=== PATIENT | male | born 1990 | race Caucasian/White ===

== ENCOUNTER 2020-01-22 10:57 | Outpatient (CLI) | payer SELFPAY ==
--- NOTE | ~2020-01-22 | XR_ITS ---
XR foot RT 2V 01/22/2020 11:24 INDICATION: Cellulitis. Foot pain. Source dorsal aspect of the foot. PROCEDURE: 4 views right foot COMPARISON: No prior studies for comparison. FINDINGS: Fracture, dislocation or subluxation is not identified. The soft tissues appear within norm al limits. No foreign bodies are identified. IMPRESSION: 1: NO ACUTE BONE OR JOINT ABNORMALITY IDENTIFIED. Reviewed, dictated and finalized at location A.
[2020-01-22 11:11] LABS: Basophils Absolute Auto 0.08 K/mm3 (0.00-0.10); Basophils Percent Auto 1.3 % (0.0-1.0); Eosinophils Absolute Auto 0.28 K/mm3 (0.02-0.50); Eosinophils Percent Auto 4.5 % (1.0-6.0); Hemoglobin 14.4 g/dL (14.0-18.0); Immature Granulocyte Absolute 0.01 K/mm3 (0.00-0.00); Immature Granulocyte Percent A 0.2 % (0.0-0.0); Lymphocytes Absolute Auto 2.01 K/mm3 (1.10-4.50); Lymphocytes Percent Auto 32.2 % (18.0-42.0); Mean Corpuscular HGB Conc 32.7 g/dL (32.0-36.0); Mean Corpuscular Hemoglobin 30.1 pg (27.0-31.0); Mean Corpuscular Volume 92.1 fL (78.0-102.0); Mean Platelet Volume 9.6 fl (8.7-11.0); Monocytes Absolute Auto 0.48 K/mm3 (0.10-0.90); Monocytes Percent Auto 7.7 % (2.0-11.0); Neutrophils Absolute Auto 3.4 K/mm3 (1.7-7.2); Neutrophils Percent Auto 54.1 % (50.0-70.0); Platelet Count Result 256 K/mm3 (150-420); Red Blood Count 4.78 M/mm3 (4.70-6.10); Red Cell Distribution Width 13.7 % (11.6-14.4); White Blood Count 6.3 K/mm3 (4.8-10.8)
[2020-01-22 12:21] LABS: Alanine Aminotransferase 24 U/L (16-63); Albumin Level 3.4 g/dL (3.4-5.0); Alkaline Phosphatase 59 U/L (46-116); Anion Gap 12.4 mmol/L (7-16); Aspartate Amino Transferase 18 U/L (15-37); Bilirubin,Total 0.4 mg/dL (0.00-1.00); Blood Urea Nitrogen 6 mg/dL (7-18); Calcium 8.5 mg/dL (8.5-10.1); Carbon Dioxide 30 mmol/L (21-32); Chloride 107 mmol/L (98-108); Estimated Glomerular Filt Rate > 60; Glucose 78 mg/dL (70-99); Osmolality Calculated 296 mOsm/kg (285-295); Potassium 4.4 mmol/L (3.5-5.1); Sodium 145 mmol/L (136-145); Total Protein 6.1 g/dL (6.4-8.2)
== END 2020-01-22 10:58 | disposition home or self-care (01) ==
PROVIDERS: PCP Nurse Practitioner Family; Visit Provider Nurse Practitioner Family
DX: L97.519 Non-pressure chronic ulcer of other part of right foot with unspecified severity (principal); L03.119 Cellulitis of unspecified part of limb; L02.619 Cutaneous abscess of unspecified foot
CPT/HCPCS: 36415; 73620; 80053; 85025; 87070; 87077; 87186; 87205

== ENCOUNTER 2020-01-28 13:30 | Outpatient (RCR) | payer OTHER, SELFPAY ==
[2020-01-28 13:30] VITALS: BMI 23.8
--- NOTE | 2020-02-07 09:43 | PCWOUND ---
WOCN NOTE Patient did not show up for appointment. called, pt states he is fine and does not feel like he needs to be assessed anymore he is fine, wound is almost closed. notifies PCP.
--- NOTE | 2020-02-28 09:27 | PCWOUND ---
WOCN NOTE Patient did not show up for appointment.
== END 2020-04-14 07:44 | disposition home or self-care (01) ==
LOC: ANHWOC 13:30
PROVIDERS: PCP Nurse Practitioner Family; Visit Provider Nurse Practitioner Family
DX: L97.519 Non-pressure chronic ulcer of other part of right foot with unspecified severity (principal)
CPT/HCPCS: 99213; A9270; G0463

== ENCOUNTER 2020-05-26 15:04 | Outpatient (CLI) | payer BC, MEDICAID, SELFPAY ==
[2020-05-27 14:22] LABS: SARS-CoV-2 RNA PCR Negative
== END 2020-05-26 15:05 | disposition home or self-care (01) ==
LOC: CHSLAB 15:06
PROVIDERS: PCP Nurse Practitioner Family; Visit Provider Nurse Practitioner Family
DX: R52 Pain, unspecified (principal); Z20.828 Contact with and (suspected) exposure to other viral communicable diseases
CPT/HCPCS: 87635; C9803; U0003

== ENCOUNTER 2020-06-28 12:46 | Emergency (ER) | payer BC, MEDICAID, SELFPAY ==
--- NOTE | ~2020-06-28 | XR_ITS ---
EXAMINATION: XR chest 1V portable EXAM DATE: 06/28/2020 13:07 INDICATION: Possible breath, history of asthma and hypertension. TECHNIQUE: Portable AP frontal chest x-ray was obtained. Comparison is made to prior examination from 06/28/2015. FINDINGS: There is moderate hyperinflation. The lungs are clear. There are no pleural effusions. Th e cardiomediastinal silhouette is within normal limits. There is no pneumothorax suspected. The bon es and soft tissues are unremarkable. IMPRESSION: Moderate hyperinflation. Reviewed, dictated and finalized at location A. IMPRESSION: Moderate hyperinflation.
[2020-06-28 12:49] VITALS: BP 141/108; PULSE 84; RESP 21; TEMP 36.8; O2SAT 99
--- NOTE | 2020-06-28 12:51 | ECG_ITS ---
Measurements Intervals [place] Rate: 69 P: 77 NM: 149 QRS: 73 QRSD: 75 T: 70 QT: 341 QTc: 366 Interpretive Statements SINUS RHYTHM NORMAL ECG Electronically Signed On 06-28-2020 15:09:48 CDT by Harry Walsh D.O.
[2020-06-28 13:30] LABS: Basophils Absolute Auto 0.1 K/mm3 (0.0-0.1); Basophils Percent Auto 1.5 % (0.2-1.2); Eosinophils Absolute Auto 0.3 K/mm3 (0-0.3); Eosinophils Percent Auto 3.6 % (0-4.4); Hemoglobin 16.2 g/dL (14.0-18.0); Immature Granulocyte Absolute 0.02 K/mm3 (0.00-0.031); Immature Granulocyte Percent A 0.2 % (0-0.5); Lymphocytes Percent Auto 36.2 % (18.3-44.2); Mean Corpuscular HGB Conc 33.8 g/dl (32-36); Mean Corpuscular Hemoglobin 30.7 pg (26-34); Mean Corpuscular Volume 91.1 fl (80-100); Mean Platelet Volume 10.2 fl (7.4-10.4); Monocytes Absolute Auto 0.6 K/mm3 (0.1-0.6); Monocytes Percent Auto 6.7 % (2.6-8.5); Neutrophils Absolute Auto 4.6 K/mm3 (1.3-6.7); Neutrophils Percent Auto 51.8 % (45.5-73.1); Platelet Count Result 251 k/mm3 (150-375); Red Blood Count 5.27 M/mm3 (4.6-6.20); Red Cell Distribution Width 13.4 % (11.5-14.5); White Blood Count 8.9 K/mm3 (4.5-10.0)
[2020-06-28 13:43] LABS: Anion Gap 8 mmol/L (8-16); Blood Urea Nitrogen 7 mg/dL (9-20); Calcium 9.4 mg/dL (8.4-10.2); Carbon Dioxide 31 mmol/L (22-30); Chloride 103 mmol/L (98-107); Estimated CRCL calculation 112 ml/min; Estimated Glomerular Filt Rate > 60; Glucose 88 mg/dL (75-110); Sodium 142 mmol/L (137-145)
[2020-06-28 13:50] VITALS: PULSE 63
[2020-06-28 14:29] VITALS: BP 136/90; PULSE 63; RESP 18; O2SAT 98
--- NOTE | 2020-06-28 14:45 | ED.SOB ---
HPI - SOB/Dyspnea General Chief Complaint: Shortness of Breath/Dyspnea Stated Complaint: diff breathing Time Seen by Provider: 06/28/20 12:53 Source: patient Mode of arrival: ambulatory Limitations: no limitations History of Present Illness HPI Narrative: Patient is a 29-year-old male who presents to emergency department for evaluation of 8 shortness of breath and wheezing with history of asthma and tobacco abuse noting that he is out of his inhaler patient notes wheezing and chest tightness denies URI symptoms or other complaints and presents in no distress patient on arrival to emergency department resting comfortably in the room in no distress Related Data Allergies Allergy/AdvReac Type Severity Reaction Status Date / Time No Known Allergies Allergy Verified 06/28/20 12:52 Review of Systems Review of Systems: All systems reviewed & are unremarkable except as noted in HPI and below PMFSH Past Medical History Medical History Asthma Depression Hypertension Nicotine dependence, cigarettes, uncomplicated Overweight (BMI 25.0-29.9) Surgical History Surgical History No history of previous surgery Social History Social History Smoking packs per day: 1 Smoking cigarettes per day: 20.0 Years smoked: 20 Smoking pack-years: 20.00 Smoking status: Current every day smoker Tobacco type: cigarettes 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 Gender identity (if verbalized by the patient): Male Exam Narrative: Exam Narrative: GENERAL: Well-appearing, well-nourished, and in no acute distress. HEAD: Normocephalic, atraumatic. EYES: PERRLA and EOMI. ENT: Nares clear, no rhinorrhea or epistaxis. Mucous membranes moist. Oropharynx without tonsillar hypertrophy exudate or other lesions. NECK: Supple. No adenopathy or masses. CHEST: Diminished on auscultation. No respiratory distress. Expiratory wheezes HEART: Regular rate and rhythm. No murmur heard. Normal peripheral pulses. ABDOMEN: Soft, nontender, nondistended EXTREMITIES: Normal range of motion. No edema. SKIN: Warm, dry, no rash. NEURO: No focal deficits. Alert and oriented x3. Cranial nerves II through XII grossly intact PSYCH: Normal mood and affect. Course Course Emergency Course: Patient in the room at this time in no distress aware of case findings treatment plan diagnosis felt appropriate for outpatient reevaluation given an MDI spacer as well as a dose of steroids in the emergency department Vital Signs Vital signs: Vital Signs Temperature 98.2 F 06/28/20 12:49 Pulse Rate 84 06/28/20 12:49 Respiratory Rate 21 H 06/28/20 12:49 Blood Pressure 141/108 H 06/28/20 12:49 Pulse Oximetry 99 06/28/20 12:49 Temperature 98.2 F 06/28/20 12:49 Pulse Rate 63 06/28/20 14:29 Respiratory Rate 18 06/28/20 14:29 Blood Pressure 136/90 06/28/20 14:29 Pulse Oximetry 98 06/28/20 14:29 MDM - SOB/Dyspnea MDM Narrative Medical decision making narrative: Patient with asthma exacerbation advised to discontinue smoking referred to primary care for further evaluation felt appropriate for his changes in his evaluation in the emergency department Lab Data Result diagrams: 06/28/20 13:02 06/28/20 13:02 Labs: Lab Results 06/28/20 06/28/20 Range/Units 13:02 13:02 WBC 8.9 (4.5-10.0) K/mm3 RBC 5.27 (4.6-6.20) M/mm3 Hgb 16.2 (14.0-18.0) g/dL Hct 48.0 (42.0-52.0) % MCV 91.1 (80-100) fl MCH 30.7 (26-34) pg MCHC 33.8 (32-36) g/dl RDW 13.4 (11.5-14.5) % Plt Count 251 (150-375) k/mm3 MPV 10.2 (7.4-10.4) fl Immature Gran % (Auto) 0.2 (0-0.5) % Neut % (Auto) 51.8 (45.5-73.1) % Lymph % (Auto) 36.2 (18.3-44.2) % Wright % (Auto) 6.7 (2.6-8.5) % Eos % (
[2020-06-28 15:10] VITALS: BP 141/94; PULSE 62; RESP 16; O2SAT 98
[2020-06-28] MEDS: methylPREDNISolone SOD SUCC 125 MG VIAL IV PUSH (15:10)
== END 2020-06-28 15:11 | disposition home or self-care (01) ==
PROVIDERS: Emergency Provider Emergency Medicine; PCP Nurse Practitioner Family
DX: J45.901 Unspecified asthma with (acute) exacerbation (principal); I10 Essential (primary) hypertension; E66.3 Overweight; Z68.23 Body mass index [BMI] 23.0-23.9, adult; F17.210 Nicotine dependence, cigarettes, uncomplicated
CPT/HCPCS: 36415; 71045; 80048; 85025; 93005; 96374; 99284; J2930

== ENCOUNTER 2020-10-10 10:55 | Outpatient (CLI) | payer BC, MEDICAID, SELFPAY ==
[2020-10-11 18:46] LABS: SARS-CoV-2 RNA PCR Negative
== END 2020-10-10 10:56 | disposition home or self-care (01) ==
LOC: CHSLAB 11:03
PROVIDERS: PCP Nurse Practitioner Family; Visit Provider Nurse Practitioner Family
DX: Z20.822 Contact with and (suspected) exposure to COVID-19 (principal)
CPT/HCPCS: C9803; U0003; U0005

== ENCOUNTER 2020-11-30 23:15 | Emergency (ER) | payer BC, MEDICAID, SELFPAY ==
[2020-11-30 23:15] VITALS: BP 155/92; PULSE 87; RESP 20; TEMP 36.9; O2SAT 98
--- NOTE | 2020-11-30 23:42 | ED.DENTAL ---
HPI - Dental/Oral General Chief complaint: Dental/Oral Stated complaint: PAIN Time Seen by Provider: 11/30/20 23:35 Source: patient Mode of arrival: ambulatory Limitations: no limitations History of Present Illness HPI Narrative: Patient comes in with dental pain what appears to be tooth #30 with an abscess on the lateral side of the tooth. He says this has been hurting for a few days, but it has gotten to hurting more and that brings him in to be evaluated now. Onset (ago): day(s) Duration: intermittent Severity: moderate Severity scale (1-10): 5 Relieving factors: NSAIDs Exacerbating factors: chewing, cold and heat Context: history of dental caries and poor dental care Associated symptoms: gum swelling Treatment prior to arrival: oral analgesic Related Data Allergies Allergy/AdvReac Type Severity Reaction Status Date / Time No Known Allergies Allergy Verified 11/25/20 14:33 Review of Systems Constitutional: Constitutional: Reports no additional constitutional complaints Eyes: Eyes: Reports no additional eye complaints ENT: Reports system reviewed and no additional complaints, except as documented Cardiovascular: Cardiovascular: Reports no additional cardiovascular complaints Respiratory: Respiratory: Reports no additional respiratory complaints Gastrointestinal: Gastrointestinal: Reports no additional gastrointestinal complaints Genitourinary: Genitourinary: Reports no additional male genitourinary complaints Musculoskeletal: Musculoskeletal: Reports no additional musculoskeletal complaints Integumentary/Breasts: Skin/Breast: Reports system reviewed and no additional complaints, except as docu Neurologic: Reports system reviewed and no additional complaints, except as documented Psychiatric: Psychiatric: Reports no additional psychiatric complaints Endocrine: Endocrine: Reports no additional endocrine complaints Hematologic/Lymphatic: Hematologic/Lymphatic: Reports no additional hematologic/lymphatic complaints Allergic/Immunologic: Allergic/Immunologic: Reports no additional allergic/immunologic complaints [facility] Past Medical History Medical History Asthma Depression Hypertension Nicotine dependence, cigarettes, uncomplicated Overweight (BMI 25.0-29.9) Surgical History Surgical History No history of previous surgery Family History Family History Father No problems noted. 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 Gender identity (if verbalized by the patient): Male Exam Const: General: healthy appearing and no acute distress Orientation/consciousness: patient oriented x3 HENMT: Head: normal to inspection Ears: external ears normal and TM's normal bilaterally General nose exam: Normal external nose present Mouth: Yes Normal oral and palatal mucosa present and Yes moist mucous membranes Throat: posterior oropharynx normal Other: Left lower jaw with mild lateral swelling. He appears to have an abscessed tooth #30, with a abscess lateral to the tooth. Eyes: Conjunctivae: conjunctivae normal Neck: Neck: normal visual inspection and no lymphadenopathy Chest: Chest palpation & inspection: normal inspection of the chest Resp: Effort & Inspection: normal respiratory effort Auscultation: clear to auscultation bilaterally Cardio: Rate: regular rate Rhythm: regular rhythm GI: GI Palp: Yes Soft to palpation (nontender) Skin: General skin exam: normal color Neuro: General: patient oriented x3 and moves all extremities Ext
[2020-11-30] MEDS: PENICILLIN G BENZATHINE 1,200,000 UNITS/2 ML SYRINGE 1200000 UNITS IM (23:58)
--- NOTE | 2020-11-30 23:59 | PC.NURSE ---
PT DOES NOT WANT TO WAIT FOR 15 MIN OBSERVATION AFTER INJECTION. PT IS ALERT AND ORIENTED AT THIS TIME.
== END 2020-12-01 00:01 | disposition home or self-care (01) ==
PROVIDERS: Emergency Provider Emergency Medicine; PCP Nurse Practitioner Family
DX: K04.7 Periapical abscess without sinus (principal)
CPT/HCPCS: 96372; 99283; J0561

== ENCOUNTER 2021-04-15 22:18 | Emergency (ER) | payer BC, MEDICAID, SELFPAY ==
[2021-04-15 22:20] VITALS: BP 156/80; PULSE 84; RESP 18; TEMP 37.1; O2SAT 98
--- NOTE | 2021-04-15 23:18 | ED.GENADULT ---
HPI - General Adult General Chief complaint: Unspecified Stated complaint: st Time Seen by Provider: 04/15/21 22:31 Source: patient Mode of arrival: ambulatory Limitations: no limitations History of Present Illness HPI narrative: This is a 30-year-old male that presents the emergency department for sore throat x2 days. Associated with rhinorrhea and a mild cough. Denies fever. Related Data Allergies Allergy/AdvReac Type Severity Reaction Status Date / Time No Known Allergies Allergy Verified 04/15/21 22:24 Review of Systems Review of Systems: Narrative: CONSTITUTIONAL: Denies fever ENT: Reports rhinorrhea, congestion, sore throat. Denies otalgia. RESPIRATORY: Reports cough All systems reviewed & are unremarkable except as noted in HPI and below PMFSH Past Medical History Medical History (Updated 04/15/21 @ 23:23 by Tayler Masterson PA-C) Asthma Depression Hypertension Nicotine dependence, cigarettes, uncomplicated Overweight (BMI 25.0-29.9) Surgical History Surgical History No history of previous surgery Family History Family History Father No problems noted. Social History Social History Smoking packs per day: 1 Smoking cigarettes per day: 20.0 Years smoked: 20 Smoking pack-years: 20.00 Smoking status: Current every day smoker Tobacco type: cigarettes Additional occupation/education comments: [employer]. Gender identity (if verbalized by the patient): Male Exam Narrative: Exam Narrative: GENERAL: Well-appearing, well-nourished, and in no acute distress. HEAD: Normocephalic, atraumatic. EYES: EOMI. ENT: Nares clear, no rhinorrhea or epistaxis. Mucous membranes moist. Oropharynx with mild tonsillar hypertrophy and exudate, no other lesions. No trismus. Uvula is midline. Bilateral TMs pearly palomino non-bulging NECK: Supple. No adenopathy or masses. CHEST: Clear to auscultation. No respiratory distress. No wheezes rales or rhonchi HEART: Regular rate and rhythm. No murmur heard. Normal peripheral pulses. EXTREMITIES: Normal range of motion. No edema. SKIN: Warm, dry, no rash. NEURO: No focal deficits. Alert and oriented x3. PSYCH: Normal mood and affect Course Vital Signs Vital signs: Vital Signs Temperature 98.7 F 04/15/21 22:20 Pulse Rate 84 04/15/21 22:20 Respiratory Rate 18 04/15/21 22:20 Blood Pressure 156/80 H 04/15/21 22:20 Pulse Oximetry 98 04/15/21 22:20 Temperature 98.7 F 04/15/21 22:20 Pulse Rate 84 04/15/21 22:20 Respiratory Rate 18 04/15/21 22:20 Blood Pressure 156/80 H 04/15/21 22:20 Pulse Oximetry 98 04/15/21 22:20 Medical Decision Making MDM Narrative Medical decision making narrative: Patient presents the emergency department for sore throat, rhinorrhea, and cough. He is afebrile and nontoxic-appearing. Rapid strep screen is negative. His tonsils are swollen and have mild exudates. Uvula is midline. No trismus. Spoke with patient about this likely being viral in nature. I did tell patient I would send an antibiotic to the pharmacy for any worsening symptoms. Patient's rapid strep will be sent for culture. He is to follow-up with his primary care doctor. He was given warnings to return to the ER Vital Signs Vital Signs: Vital Signs Temperature 98.7 F 04/15/21 22:20 Pulse Rate 84 04/15/21 22:20 Respiratory Rate 18 04/15/21 22:20 Blood Pressure 156/80 H 04/15/21 22:20 Pulse Oximetry 98 04/15/21 22:20 Temperature 98.7 F 04/15/21 22:20 Pulse Rate 84 04/15/21 22:20 Respiratory Rate 18 04/15/21 22:20 Blood Pressure 156/80 H 04/15/21 22:20 Pulse Oximetry 98 04/15/21 22:20 Lab Data Lab results reviewed: Yes I reviewed the patient's lab results. Labs: Strep Screen
[2021-04-16 00:01] VITALS: BP 148/96; PULSE 71; RESP 14; O2SAT 99
== END 2021-04-15 23:30 | disposition home or self-care (01) ==
PROVIDERS: Emergency Provider Emergency Medicine; PCP Nurse Practitioner Family
DX: J02.9 Acute pharyngitis, unspecified (principal); F17.210 Nicotine dependence, cigarettes, uncomplicated; J45.909 Unspecified asthma, uncomplicated; F32.9 Major depressive disorder, single episode, unspecified; I10 Essential (primary) hypertension
CPT/HCPCS: 87081; 87880; 99283

== ENCOUNTER 2021-07-10 14:10 | Emergency (ER) | payer BC, MEDICAID, SELFPAY ==
--- NOTE | ~2021-07-10 | XR_ITS ---
EXAMINATION: XR chest 2V EXAM DATE: 07/10/2021 16:42 INDICATION: Dyspnea, chest tightness x1 day TECHNIQUE: Frontal and lateral projections of the chest obtained and reviewed. Comparison is made to prior examination from 06/28/2020. FINDINGS: Lungs are moderate to severely hyperinflated. The lungs are clear. There are no pleural e ffusions. The cardiomediastinal silhouette is within normal limits. There is no pneumothorax suspec jassi. The bones and soft tissues are unremarkable. IMPRESSION: Moderate to severe hyperinflation. Reviewed, dictated and finalized at location B.
--- NOTE | 2021-07-10 14:20 | PC.NURSE ---
Pt sent from office for SOB. Hx of asthma. Pt o2 saturation 97% on room air. Pt able to speak in full sentences. No obvious distress noted. Will continue to monitor.
[2021-07-10 14:52] VITALS: BP 119/96; PULSE 90; RESP 18; TEMP 36.5; O2SAT 98
--- NOTE | 2021-07-10 14:56 | ECG_ITS ---
Measurements Intervals [place] Rate: 80 P: 93 CO: 145 QRS: 90 QRSD: 81 T: 89 QT: 338 QTc: 390 Interpretive Statements SINUS RHYTHM DELAYED PRECORDIAL R/S TRANSITION MINIMAL Q WAVES- INFERIOR LEADS BORDERLINE T WAVE ABNORMALITY- HIGH LATERAL LEADS BORDERLINE ECG Electronically Signed On 07-10-2021 15:26:16 CDT by Harry Walsh D.O.
--- NOTE | 2021-07-10 14:58 | ED.SOB ---
HPI - SOB/Dyspnea General Chief Complaint: Shortness of Breath/Dyspnea Stated Complaint: SOB Time Seen by Provider: 07/10/21 14:58 Source: patient Mode of arrival: ambulatory Limitations: no limitations History of Present Illness HPI Narrative: 30-year-old man with a history of asthma comes to the ER today complaining of shortness of breath and chest tightness that has been present for last couple of days. Patient states that his symptoms are not improved by his nebulizers or inhalers. His cough is occasionally productive of small amounts of yellow sputum and he has nausea.. He denies sore throat, rhinorrhea, fever, chills, body aches, abdominal pain, vomiting, diarrhea, or sick exposures. He has not had the COVID or flu vaccines. MD elicited complaint: shortness of breath and cough Pertinent past history: asthma Onset (ago): day(s) (2) Timing: constant and progressively worsening Severity: moderate Exacerbating factors: exertion Relieving factors: nothing Associated symptoms: chest pain ( Tightness), fever, cough, wheezing and sputum production Related Data Home oxygen amount: none Allergies Allergy/AdvReac Type Severity Reaction Status Date / Time No Known Allergies Allergy Verified 07/10/21 15:45 Review of Systems Review of Systems: All systems reviewed & are unremarkable except as noted in HPI and below Constitutional: Constitutional: Denies chills and Denies fever(s) ENT: Denies nasal congestion and Denies sore throat Cardiovascular: Cardiovascular: Reports as per HPI, Denies chest pain and Denies radiating jaw, neck or arm pain Respiratory: Respiratory: Reports chest congestion, Reports cough, Reports dyspnea and Reports wheezing Gastrointestinal: Gastrointestinal: Denies abdominal pain, Denies diarrhea, Reports nausea and Denies vomiting Musculoskeletal: Musculoskeletal: Denies back pain, Denies arthralgias and Denies joint swelling Integumentary/Breasts: Skin/Breast: Denies pruritus, Denies erythema and Denies rash Neurologic: Denies vertigo, Denies dizziness, Denies syncope, Denies focal weakness and Denies numbness Hematologic/Lymphatic: Hematologic/Lymphatic: Denies easy bleeding and Denies easy bruising Allergic/Immunologic: Allergic/Immunologic: Denies lip swelling and Denies throat swelling PMFSH Past Medical History Medical History (Updated 07/10/21 @ 17:16 by Portillo Cruz MD) Asthma Depression Hypertension Nicotine dependence, cigarettes, uncomplicated Overweight (BMI 25.0-29.9) Surgical History Surgical History No history of previous surgery Family History Family History Father No problems noted. Social History Social History Smoking packs per day: 1 Smoking cigarettes per day: 20.0 Years smoked: 20 Smoking pack-years: 20.00 Smoking status: Current every day smoker Tobacco type: cigarettes Additional occupation/education comments: [employer]. [employer]. Gender identity (if verbalized by the patient): Male Exam Const: General: healthy appearing and alert Orientation/consciousness: patient oriented x3 Limitations: no limitations Other: Mild acute distress. HENMT: Head: normal to inspection Ears: external ears normal, TM's normal bilaterally and EAC's normal General nose exam: Normal nares present Face and sinus: normal facial exam Mouth: Yes moist mucous membranes Throat: posterior oropharynx normal Eyes: Conjunctivae: conjunctivae normal Pupils: Equal, round and reactive pupils present EOM: EOMs intact bilaterally Resp: Effort & Inspection: normal respiratory effort, labored ( Mildly), no retractions, tachypneic and no use of accessory muscles Auscultation: wheezes expiratory wheezes ( late with mildly decreased air movement) and throughout Cardi
--- NOTE | 2021-07-10 15:16 | PC.NURSE ---
Covid and Influenza swabs obtained and sent to lab
--- NOTE | 2021-07-10 15:42 | PCRCNOTE ---
Patient asked if he could self-administer his own Albuterol MDI he had in his pocket. Approved by Dr. Cruz. Albuterol MDI returned in [facility]
[2021-07-10 15:55] VITALS: BP 140/97; PULSE 92; RESP 18; O2SAT 99
[2021-07-10 16:07] LABS: SARS-CoV-2 RNA PCR Negative (Negative)
[2021-07-10 16:08] LABS: Influenza A QL RT-PCR Negative (Negative); Influenza B QL RT-PCR Negative (Negative)
[2021-07-10 16:31] LABS: Eosinophils Absolute Auto 0.26 K/mm3 (0.02-0.50); Eosinophils Percent Auto 2.7 % (1.0-6.0); Hematocrit 47.7 % (40.0-54.0); Hemoglobin 16.3 g/dL (14.0-18.0); Immature Granulocyte Absolute 0.03 K/mm3 (0.00-0.00); Immature Granulocyte Percent A 0.3 % (0.0-0.0); Lymphocytes Absolute Auto 1.94 K/mm3 (1.10-4.50); Lymphocytes Percent Auto 19.8 % (18.0-42.0); Mean Corpuscular HGB Conc 34.2 g/dL (32.0-36.0); Mean Corpuscular Hemoglobin 30.4 pg (27.0-31.0); Mean Corpuscular Volume 88.8 fL (78.0-102.0); Mean Platelet Volume 9.3 fl (8.7-11.0); Monocytes Absolute Auto 0.43 K/mm3 (0.10-0.90); Monocytes Percent Auto 4.4 % (2.0-11.0); Neutrophils Absolute Auto 7.1 K/mm3 (1.7-7.2); Neutrophils Percent Auto 71.8 % (50.0-70.0); Platelet Count Result 269 K/mm3 (150-420); Red Blood Count 5.37 M/mm3 (4.70-6.10); Red Cell Distribution Width 13.3 % (11.6-14.4); White Blood Count 9.8 K/mm3 (4.8-10.8)
[2021-07-10 16:45] LABS: D Dimer 0.19 mg/L (0.19-0.50)
[2021-07-10 16:47] LABS: Alanine Aminotransferase 31 U/L (16-63); Albumin Level 4.4 g/dL (3.4-5.0); Alkaline Phosphatase 74 U/L (46-116); Anion Gap 11 mmol/L (8-16); Aspartate Amino Transferase 19 U/L (15-37); Bilirubin,Total 2.2 mg/dL (0.00-1.00); Blood Urea Nitrogen 9 mg/dL (7-18); Calcium 9.3 mg/dL (8.5-10.1); Carbon Dioxide 26 mmol/L (21-32); Chloride 103 mmol/L (98-108); Estimated CRCL calculation 91 ml/min; Estimated Glomerular Filt Rate > 60; Glucose 89 mg/dL (70-99); Osmolality Calculated 287 mOsm/kg (285-295); Potassium 3.7 mmol/L (3.5-5.1); Sodium 140 mmol/L (136-145); Total Protein 7.6 g/dL (6.4-8.2)
[2021-07-10 17:33] VITALS: BP 133/103; PULSE 80; RESP 16; O2SAT 97
== END 2021-07-10 17:31 | disposition home or self-care (01) ==
PROVIDERS: Emergency Provider Emergency Medicine; PCP Nurse Practitioner Family
DX: J45.41 Moderate persistent asthma with (acute) exacerbation (principal); Z20.822 Contact with and (suspected) exposure to COVID-19
CPT/HCPCS: 36415; 71046; 80053; 85025; 85380; 87502; 93005; 99283; 99284; A9270; C9803; U0003; U0005

== ENCOUNTER 2021-09-22 14:15 | Outpatient (CLI) | payer BC, MEDICAID, SELFPAY ==
[2021-09-22 15:10] LABS: SARS-CoV-2 RNA PCR Negative (Negative)
== END 2021-09-22 14:16 | disposition home or self-care (01) ==
LOC: CHSLAB 14:21
PROVIDERS: PCP Nurse Practitioner Family; Visit Provider Nurse Practitioner Family
DX: Z20.822 Contact with and (suspected) exposure to COVID-19 (principal)
CPT/HCPCS: C9803; U0003; U0005

== ENCOUNTER 2021-09-24 12:23 | Outpatient (CLI) | payer BC, MEDICAID, SELFPAY ==
--- NOTE | ~2021-09-24 | CT_ITS ---
EXAMINATION: CT brain wo con DATE: 09/24/2021 12:48 INDICATION: Confusion. Generalized headache. TECHNIQUE: Computed tomography (CT) of the head was performed without intravenous contrast. Sagittal and coronal reconstructions were performed. The mA was adjusted according to patient size. Iterative reconstruction technique was employed. The dose-length product was 605.33 mGy-cm. COMPARISON: head CT dated 06/28/2015 FINDINGS: No acute intracranial hemorrhage, acute infarction or abnormal extra axial fluid collection. Ventricl es are normal and symmetric. No mass/mass effect. The orbits, paranasal sinuses and mastoid air cells are normal. IMPRESSION: 1. Normal brain. No acute intracranial process. Reviewed, dictated and finalized at location A. 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
== END 2021-09-24 12:24 | disposition home or self-care (01) ==
LOC: CHSIMG 12:26
PROVIDERS: PCP Nurse Practitioner Family; Visit Provider Nurse Practitioner Family
DX: R56.9 Unspecified convulsions (principal); F41.0 Panic disorder [episodic paroxysmal anxiety]; R51.9 Headache, unspecified; G89.29 Other chronic pain; R40.20 Unspecified coma
CPT/HCPCS: 70450

== ENCOUNTER 2021-12-03 18:26 | Emergency (ER) | payer BC, MEDICAID, SELFPAY ==
[2021-12-03 19:20] VITALS: BP 133/99; PULSE 107; RESP 22; TEMP 36.2; O2SAT 97
[2021-12-03 19:25] VITALS: O2SAT 97
--- NOTE | 2021-12-03 19:25 | ED.SOB ---
HPI - SOB/Dyspnea General Chief Complaint: Shortness of Breath/Dyspnea Stated Complaint: trouble breathing Source: patient Mode of arrival: ambulatory Limitations: no limitations History of Present Illness HPI Narrative: This is a 31-year-old gentleman that presents with some mild shortness of breath with some scattered wheezes apparently has run out of his inhalers and presented to the emergency department currently patient is afebrile blood pressure stable has no cough no nausea vomiting no chest pain no abdominal pain. MD elicited complaint: shortness of breath Pertinent past history: asthma Onset (ago): hour(s) Timing: intermittent Severity: mild Related Data Allergies Allergy/AdvReac Type Severity Reaction Status Date / Time No Known Allergies Allergy Verified 12/03/21 19:27 Review of Systems Review of Systems: All systems reviewed & are unremarkable except as noted in HPI and below PMFSH Past Medical History Medical History (Updated 12/03/21 @ 19:27 by Kam Maldonado MD) Asthma Depression Hypertension Nicotine dependence, cigarettes, uncomplicated Overweight (BMI 25.0-29.9) Surgical History Surgical History No history of previous surgery Family History Family History Father No problems noted. 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 Gender identity (if verbalized by the patient): Male Exam Const: General: no acute distress and alert Orientation/consciousness: patient oriented x3 HENMT: Head: normal to inspection Eyes: Conjunctivae: conjunctivae normal Pupils: Equal, round and reactive pupils present Neck: Neck: normal visual inspection Chest: Chest palpation & inspection: normal inspection of the chest Resp: Effort & Inspection: normal respiratory effort Auscultation: wheezes Cardio: Rate: regular rate Rhythm: regular rhythm GI: GI Palp: Yes Soft to palpation : Testes: Testes normal Urinary Catheter: Urinary Catheter: patent and draining Back/Spine/Pelvis: Back: no CVA tenderness Skin: General skin exam: normal color Rashes: no rashes Neuro: General: patient oriented x3 and moves all extremities Extrem: General: normal to inspection and no pedal edema Psych: Mental Status: mental status grossly normal Affect: normal affect Attitude: cooperative Course Course Emergency Course: Patient's saturations 97% on room air, patient received DuoNeb treatment and stable will be discharged will send inhalers to his pharmacy. Critical Care Time Critical Care Time Critical Care Time: No Discharge Plan Discharge Clinical Impression: Asthma Qualifiers: Asthma severity: mild Asthma persistence: unspecified Asthma complication type: uncomplicated Qualified Code(s): J45.909 - Unspecified asthma, uncomplicated Patient Disposition: Home, Self-Care Condition: Stable Instructions: Antibiotic Form, Asthma (ED) Additional Instructions: Use inhalers as prescribed follow-up with primary care physician for further evaluation and treatment. Prescriptions: New albuterol sulfate [ProAir HFA] 90 mcg/actuation HFA aerosol inhaler 2 puff inhalation QID PRN (Reason: shortness of breath or wheezing) Qty: 6.7 RF: 0 No Action ipratropium-albuterol 0.5 mg-3 mg(2.5 mg base)/3 mL solution for nebulization 3 ml INHALATION Q4H PRN (Reason: shortness of breath or wheezing) Qty: 180 RF: 2 montelukast 10 mg tablet 10 mg PO DAILY Qty: 30 RF: 2 albuterol sulfate 90 mcg/actuation HFA aerosol inhaler See Rx Instructions .ROUTE .COMPL
--- NOTE | 2021-12-03 19:36 | PC.NURSE ---
Nurse walked into room when pt was seen at door, pt suddenly aggressive calling nurse a son of a bitch and to get pd here now amtt pt highly aggitated so [place] [employer] called
--- NOTE | 2021-12-03 19:46 | PC.NURSE ---
Pt declined all services, left with officer when donnell gee arrived
== END 2021-12-03 19:46 | disposition left against medical advice (07) ==
PROVIDERS: Emergency Provider Emergency Medicine; PCP Nurse Practitioner Family
DX: J45.909 Unspecified asthma, uncomplicated (principal)
CPT/HCPCS: 99283

== ENCOUNTER 2022-10-08 10:31 | Emergency (ER) | payer BC, SELFPAY ==
[2022-10-08] VITALS (16 sets, daily range): BP systolic 133–144; BP diastolic 83–98; PULSE 100–124; RESP 12–21; TEMP 36.4–36.9; O2SAT 95–100
--- NOTE | ~2022-10-08 | XR_ITS ---
EXAMINATION: XR chest 1V portable DATE: 10/08/2022 11:10 INDICATION: Shortness of breath TECHNIQUE: frontal view of the chest was obtained. COMPARISON: Chest radiograph dated 07/10/2021 FINDINGS: The lungs remain clear with no focal airspace opacities, pulmonary edema, pleural effusion or pneumot horax. The cardiomediastinal silhouette is normal. Visualized bones and soft tissues are unremarkable . IMPRESSION: 1. No acute cardiopulmonary disease. Reviewed, dictated and finalized at location A. CLOSER
--- NOTE | 2022-10-08 10:35 | ED.SOB ---
HPI - SOB/Dyspnea General Chief Complaint: Shortness of Breath/Dyspnea Stated Complaint: ambulance - asthma Time Seen by Provider: 10/08/22 10:34 Source: patient and EMS Mode of arrival: EMS Limitations: no limitations History of Present Illness HPI Narrative: 32-year-old male with a history of polysubstance abuse, smoker, anxiety /depression, asthma, chronic headache, seizure disorder presents to the ER with a 1 day history of -- nonproductive cough -- worsening shortness of breath since yesterday. -- Questionable fever no chest pain or palpitation. MD elicited complaint: shortness of breath, cough and asthma attack Pertinent past history: COPD and asthma Onset (ago): day(s) ( Started last night) Context: anxiety Timing: constant Severity: severe Exacerbating factors: nothing Relieving factors: nothing Known history of: asthma Associated symptoms: denies other symptoms, fever, cough and wheezing Treatment prior to arrival: none Related Data Home oxygen amount: none Allergies Allergy/AdvReac Type Severity Reaction Status Date / Time No Known Allergies Allergy Verified 09/15/22 06:39 Review of Systems Review of Systems: All systems reviewed & are unremarkable except as noted in HPI and below Constitutional: Constitutional: Reports as per HPI, Reports no additional constitutional complaints and Reports fever(s) Eyes: Eyes: Reports as per HPI and Reports no additional eye complaints ENT: Reports system reviewed and no additional complaints, except as documented and Reports as per HPI Cardiovascular: Cardiovascular: Reports as per HPI and Reports no additional cardiovascular complaints Respiratory: Respiratory: Reports as per HPI, Reports no additional respiratory complaints, Reports cough, Reports dyspnea and Reports wheezing Gastrointestinal: Gastrointestinal: Reports as per HPI and Reports no additional gastrointestinal complaints Genitourinary: Genitourinary: Reports no additional male genitourinary complaints and Reports as per HPI Musculoskeletal: Musculoskeletal: Reports no additional musculoskeletal complaints and Reports as per HPI Integumentary/Breasts: Skin/Breast: Reports system reviewed and no additional complaints, except as docu and Reports as per HPI Neurologic: Reports system reviewed and no additional complaints, except as documented and Reports as per HPI Psychiatric: Psychiatric: Reports no additional psychiatric complaints, Reports as per HPI and Reports anxiety Endocrine: Endocrine: Reports no additional endocrine complaints and Reports as per HPI Hematologic/Lymphatic: Hematologic/Lymphatic: Reports no additional hematologic/lymphatic complaints and Reports as per HPI Allergic/Immunologic: Allergic/Immunologic: Reports no additional allergic/immunologic complaints and Reports as per [facility] Past Medical History Medical History (Updated 10/08/22 @ 12:19 by Benoit Perez MD) Asthma Depression Hypertension Nicotine dependence, cigarettes, uncomplicated Overweight (BMI 25.0-29.9) Surgical History Surgical History No history of previous surgery Family History Family History Father No problems noted. Social History Social History Smoking packs per day: 1 Smoking cigarettes per day: 20.0 Years smoked: 20 Smoking pack-years: 20.00 Smoking status: Current every day smoker Tobacco type: cigarettes Substance use: current Substance use type: marijuana, painkillers, methamphetamine and other Additional occupation/education comments: [employer]. 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 Gender identity (if verbalized by the patient): Male Exam Const: General: no acute distress Nutritional Appearance: thin Orientation/consciousness: patient oriented x3 Limitations: no limitations NIKOLEMT: Donny
--- NOTE | 2022-10-08 10:45 | ECG_ITS ---
Measurements Intervals [place] Rate: 104 P: 85 DE: 138 QRS: 85 QRSD: 82 T: -11 QT: 329 QTc: 433 Interpretive Statements SINUS TACHYCARDIA DELAYED PRECORDIAL R/S TRANSITION MINIMAL Q WAVES- INF/LAT LEADS NONSPECIFIC T-WAVE ABNORMALITY- HIGH LATERAL LEADS BASELINE ARTIFACT- I, AVR, AVL, AVF BORDERLINE ECG COMPARED TO ECG 07/10/2021 15:19:26 SINUS TACHYCARDIA NOW PRESENT Electronically Signed On 10-08-2022 11:09:35 DREDGE PIPEMAN by Harry Walsh D.O.
[2022-10-08] MEDS: methylPREDNISolone SOD SUCC 125 MG VIAL IV PUSH (10:55)
[2022-10-08] MEDS: IPRATROPIUM 0.5 MG/ALBUTEROL SULFATE 2.5 MG AMPUL.NEB 3 ML INHALATION (10:59)
[2022-10-08 11:04] LABS: Basophils Absolute Auto 0.11 K/mm3 (0.00-0.10); Basophils Percent Auto 1.4 % (0.0-1.0); Eosinophils Absolute Auto 0.38 K/mm3 (0.02-0.50); Eosinophils Percent Auto 4.8 % (1.0-6.0); Hematocrit 46.8 % (40.0-54.0); Hemoglobin 15.4 g/dL (14.0-18.0); Immature Granulocyte Absolute 0.01 K/mm3 (0.00-0.00); Immature Granulocyte Percent A 0.1 % (0.0-0.0); Lymphocytes Absolute Auto 1.73 K/mm3 (1.10-4.50); Mean Corpuscular HGB Conc 32.9 g/dL (32.0-36.0); Mean Corpuscular Hemoglobin 29.2 pg (27.0-31.0); Mean Corpuscular Volume 88.6 fL (78.0-102.0); Mean Platelet Volume 9.3 fl (8.7-11.0); Monocytes Absolute Auto 0.59 K/mm3 (0.10-0.90); Monocytes Percent Auto 7.5 % (2.0-11.0); Neutrophils Absolute Auto 5.1 K/mm3 (1.7-7.2); Neutrophils Percent Auto 64.2 % (50.0-70.0); Platelet Count Result 263 K/mm3 (150-420); Red Blood Count 5.28 M/mm3 (4.70-6.10); Red Cell Distribution Width 12.7 % (11.6-14.4); White Blood Count 7.9 K/mm3 (4.8-10.8)
[2022-10-08 11:17] LABS: Prothrombin Time 11.1 Seconds (9.50-12.10)
[2022-10-08 11:27] LABS: Lactic Acid Reflex 1.6 mmol/L (0.4-2.0)
[2022-10-08 11:29] LABS: Troponin I 4.9 ng/L (0.00-60.4)
[2022-10-08 11:31] LABS: Alanine Aminotransferase 26 U/L (16-63); Albumin Level 3.6 g/dL (3.4-5.0); Alkaline Phosphatase 80 U/L (46-116); Anion Gap 4 mmol/L (8-16); Aspartate Amino Transferase 16 U/L (15-37); Bilirubin,Total 0.6 mg/dL (0.00-1.00); Blood Urea Nitrogen 10 mg/dL (7-18); Calcium 8.9 mg/dL (8.5-10.1); Carbon Dioxide 33 mmol/L (21-32); Chloride 101 mmol/L (98-108); Estimated CRCL calculation 107 ml/min; Estimated Glomerular Filt Rate > 60; Glucose 106 mg/dL (70-99); Lipase 19 U/L (16-77); NT Pro B Type Natriuretic Pept 50 pg/mL (0-125); Osmolality Calculated 285 mOsm/kg (285-295); Potassium 4.4 mmol/L (3.5-5.1); Sodium 138 mmol/L (136-145); Total Protein 7.5 g/dL (6.4-8.2)
[2022-10-08 11:33] LABS: Influenza A QL RT-PCR Negative (Negative); Influenza B QL RT-PCR Negative (Negative); SARS-CoV-2 RNA PCR Negative (Negative)
[2022-10-08 11:37] LABS: RSV RNA, RT-PCR Negative (Negative)
== END 2022-10-08 12:36 | disposition home or self-care (01) ==
PROVIDERS: Emergency Provider Internal Medicine Critical Care Medicine; PCP Nurse Practitioner Family
DX: J45.901 Unspecified asthma with (acute) exacerbation (principal); F17.210 Nicotine dependence, cigarettes, uncomplicated; F15.90 Other stimulant use, unspecified, uncomplicated; F11.90 Opioid use, unspecified, uncomplicated; F12.90 Cannabis use, unspecified, uncomplicated; Z79.51 Long term (current) use of inhaled steroids; Z20.822 Contact with and (suspected) exposure to COVID-19
CPT/HCPCS: 36415; 71045; 80053; 83605; 83690; 83880; 84484; 85025; 85610; 87637; 93005; 94640; 96374; 99284; J2930

== ENCOUNTER 2022-11-07 03:33 | Emergency (ER) | payer BC, SELFPAY ==
[2022-11-07 03:35] VITALS: BP 126/79; PULSE 103; RESP 20; TEMP 36.6; O2SAT 96; O2SAT 99
[2022-11-07] MEDS: MAGNESIUM SULF 2 GM/WATER 50ML 2 GM/50 ML BAG IVPB (03:48)
[2022-11-07 03:51] VITALS: PULSE 108; RESP 18; O2SAT 98
[2022-11-07] MEDS: IPRATROPIUM 0.5 MG/ALBUTEROL SULFATE 2.5 MG AMPUL.NEB 3 ML INHALATION (03:51)
--- NOTE | 2022-11-07 03:54 | ED.ASTHMA ---
HPI - Asthma General Chief Complaint: Asthma Stated Complaint: SOB Time Seen by Provider: 11/07/22 03:39 Source: patient and EMS Mode of arrival: ambulatory Limitations: no limitations History of Present Illness HPI Narrative: this is a 32-year-old gentleman with a history of asthma that was at home and has brother brought cats in the house and the patient is allergic to cats, and developed an asthma exacerbation I had been out of his nebulizer and albuterol inhaler called EMS as he was having difficulty with his breathing had audible wheezing no fever chills no chest congestion no chest pain no nausea vomiting. complaint: asthma attack , shortness of breath and wheezing Onset (ago): hour(s) Severity: moderate Related Data Allergies Allergy/AdvReac Type Severity Reaction Status Date / Time No Known Allergies Allergy Verified 10/21/22 11:26 Review of Systems Review of Systems: All systems reviewed & are unremarkable except as noted in HPI and below PMFSH Past Medical History Medical History (Updated 11/07/22 @ 03:58 by Kam Maldonado MD) Asthma Depression Hypertension Nicotine dependence, cigarettes, uncomplicated Overweight (BMI 25.0-29.9) Surgical History Surgical History No history of previous surgery Family History Family History Father No problems noted. 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 Gender identity (if verbalized by the patient): Male Exam Const: General: no acute distress Nutritional Appearance: well nourished Orientation/consciousness: patient oriented x3 Limitations: no limitations HENMT: Head: normal to inspection Face/Nose/Sinus: Normal external nose present Face and sinus: normal facial exam Mouth: Yes Normal oral and palatal mucosa present Throat: posterior oropharynx normal Eyes: Conjunctivae: conjunctivae normal Pupils: Equal, round and reactive pupils present EOM: EOMs intact bilaterally Direct Ophthalmoscopy: no photophobia Neck: Neck: normal visual inspection Chest: Chest palpation & inspection: normal inspection of the chest Resp: Effort & Inspection: normal respiratory effort Auscultation: wheezes and diminished lung sounds Cardio: Rate: regular rate Rhythm: regular rhythm GI: Auscultation: normal bowel sounds : General: Yes bladder normal to palpation Urinary Catheter: Urinary Catheter: patent and draining Back/Spine/Pelvis: Back: no CVA tenderness Skin: General skin exam: normal color Lesions: no lesions Wounds: no wounds Neuro: General: patient oriented x3 and moves all extremities Cranial nerves: Yes Nystagmus not present Extrem: General: normal to inspection, no clubbing, cyanosis or edema and no pedal edema Psych: Mental Status: mental status grossly normal Affect: normal affect Course Course Emergency Course: Patient symptoms have improved started on albuterol via EMS, added a DuoNeb and patient did receive 125 Solu-Medrol IV and 2g magnesium patient's symptoms have markedly improved currently satting at 98% on room air wheezing has improved and has significantly better air movement. Vital Signs Vital signs: Vital Signs Pulse Rate 108 H 11/07/22 03:51 Respiratory Rate 18 11/07/22 03:51 Pulse Oximetry 98 11/07/22 03:51 Pulse Rate 108 H 11/07/22 03:51 Respiratory Rate 18 11/07/22 03:51 Pulse Oximetry 98 11/07/22 03:51 Critical Care Time
[2022-11-07 03:59] VITALS: PULSE 106; RESP 16; O2SAT 99
[2022-11-07 04:39] VITALS: BP 130/74; PULSE 100; RESP 20; TEMP 36.6; O2SAT 95
== END 2022-11-07 04:56 | disposition home or self-care (01) ==
PROVIDERS: Emergency Provider Emergency Medicine; PCP Family Medicine
DX: J45.909 Unspecified asthma, uncomplicated (principal); I10 Essential (primary) hypertension; F17.210 Nicotine dependence, cigarettes, uncomplicated
CPT/HCPCS: 94640; 96365; 99284; J3475

== ENCOUNTER 2023-01-30 13:39 | Emergency (ER) | payer OTHER, SELFPAY ==
--- NOTE | ~2023-01-30 | US_ITS ---
EXAMINATION: US venous doppler [facility] DATE: 01/30/2023 15:54 INDICATION: Lower limb edema. TECHNIQUE: Grayscale ultrasound images without and with compression and Doppler ultrasound images of the bilateral lower extremity veins were obtained. COMPARISON: None. FINDINGS: The visualized portions of right common femoral vein, profunda (deep) femoral vein, femoral vein, pop liteal vein, peroneal veins, posterior tibial veins, and greater saphenous vein outflow are patent. The visualized portions of left common femoral vein, profunda femoral vein, femoral vein, popliteal v ein, peroneal veins, posterior tibial veins, and greater saphenous vein outflow are patent. IMPRESSION: 1. No deep venous thrombosis. Reviewed, dictated and finalized at location A.
[2023-01-30 13:42] VITALS: BP 122/80; PULSE 105; RESP 18; TEMP 37.3; O2SAT 99
[2023-01-30 14:44] LABS: Basophils Absolute Auto 0.1 K/mm3 (0.0-0.1); Basophils Percent Auto 1.1 % (0.2-1.2); Eosinophils Absolute Auto 0.6 K/mm3 (0-0.3); Eosinophils Percent Auto 5.3 % (0-4.4); Hematocrit 43.9 % (42.0-52.0); Hemoglobin 13.8 g/dL (14.0-18.0); Immature Granulocyte Absolute 0.03 K/mm3 (0.00-0.031); Immature Granulocyte Percent A 0.3 % (0-0.5); Lymphocytes Percent Auto 18.1 % (18.3-44.2); Mean Corpuscular HGB Conc 31.4 g/dl (32-36); Mean Corpuscular Volume 89.2 fl (80-100); Mean Platelet Volume 9.5 fl (7.4-10.4); Monocytes Absolute Auto 0.7 K/mm3 (0.1-0.6); Neutrophils Absolute Auto 7.1 K/mm3 (1.3-6.7); Neutrophils Percent Auto 68.2 % (45.5-73.1); Platelet Count Result 255 k/mm3 (150-375); Red Blood Count 4.92 M/mm3 (4.6-6.20); Red Cell Distribution Width 13.7 % (11.5-14.5); White Blood Count 10.5 K/mm3 (4.5-10.0)
[2023-01-30 14:46] LABS: Alanine Aminotransferase 26 U/L (6-50); Albumin Level 3.9 g/dL (3.5-5.1); Alkaline Phosphatase 70 U/L (38-126); Anion Gap 4 mmol/L (8-16); Aspartate Amino Transferase 26 U/L (17-59); Bilirubin,Total 0.9 mg/dL (0.2-1.3); Blood Urea Nitrogen 11 mg/dL (9-20); Calcium 8.7 mg/dL (8.4-10.2); Carbon Dioxide 34 mmol/L (22-30); Chloride 102 mmol/L (98-107); Estimated CRCL calculation 118 ml/min; Estimated Glomerular Filt Rate > 60; Glucose 100 mg/dL (65-110); Sodium 140 mmol/L (137-145)
[2023-01-30 14:48] LABS: Prothrombin Time 13.8 Seconds (11.1-14.7)
[2023-01-30 14:49] LABS: Partial Thromboplastin Time 32.7 SECONDS (22.3-36.8)
[2023-01-30 14:55] LABS: NT Pro B Type Natriuretic Pept 38 pg/mL (19.9-100)
--- NOTE | 2023-01-30 14:58 | ED.EXTPRO ---
HPI - Extremity Problem General Chief complaint: Extremity Problem,Nontraumatic Stated complaint: legs are swollen Time Seen by Provider: 01/30/23 13:46 History of Present Illness HPI Narrative: 32-year-old male presented to the emergency department for evaluation of bilateral lower extremity swelling. Patient states over the course of the last few days he has had lower extremity erythema and edema. Patient denies any prior history of PE or DVT. Patient denies any recent breaks in skin. Patient denies any worsening chest pain or shortness of breath. Patient does have asthma and states that his shortness of breath is unchanged. Patient does have wheeze upon arrival to the ED. Related Data Allergies Allergy/AdvReac Type Severity Reaction Status Date / Time No Known Allergies Allergy Verified 01/30/23 14:00 Review of Systems Review of Systems: All systems reviewed & are unremarkable except as noted in HPI and below PMFSH Past Medical History Medical History (Updated 01/30/23 @ 21:39 by Sean Muro MD) Asthma Depression Hypertension Nicotine dependence, cigarettes, uncomplicated Overweight (BMI 25.0-29.9) Surgical History Surgical History No history of previous surgery Family History Family History Father No problems noted. 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 Gender identity (if verbalized by the patient): Male Exam Narrative: APPEARANCE: Well appearing, no pain, no distress, well-nourished. HEAD: normocephalic, atraumatic. EYES: PERRLA/EOMI, conjunctivae clear. NECK: Supple. No adenopathy, no masses. RESPIRATORY: Airway patent, respirations nonlabored. Wheeze bilaterally CARDIOVASCULAR: Regular rate and rhythm without murmurs rubs or gallops. ABDOMINAL: Soft, nontender, nondistended, normal bowel sounds MUSCULOSKELETAL: Moves all extremities. Strength/ROM intact, No edema, No calf tenderness. NEURO: Alert. Cranial nerves II through XII intact. Grossly intact SKIN: Bilateral lower extremity edema and erythema from mid calderón down. No wounds on bilateral lower extremities Course Course Emergency Course: 32-year-old male presented to the ED for evaluation of bilateral lower extremity edema. Patient was afebrile but does have a leukocytosis of 10.5 CMP was within normal limits. Patient's BNP was not significantly elevated. Ultrasounds were ordered to rule out for DVT and these were negative. Patient was treated as a cellulitis. Patient was started on Rocephin in the emergency department and discharged home with Keflex. Patient and family were updated on the results of the work-up and on the plan for treatment for home. All question concerns were addressed and patient felt improved after the breathing treatment. Patient's lung sounds were improved. Vital Signs Vital signs: Vital Signs Temperature 99.1 F 01/30/23 13:42 Pulse Rate 105 H 01/30/23 13:42 Respiratory Rate 18 01/30/23 13:42 Blood Pressure 122/80 01/30/23 13:42 Pulse Oximetry 99 01/30/23 13:42 Temperature 99.1 F 01/30/23 13:42 Pulse Rate 77 01/30/23 16:59 Respiratory Rate 18 01/30/23 16:59 Blood Pressure 133/89 01/30/23 16:59 Pulse Oximetry 100 01/30/23 16:59 MDM - Extremity (Nontraumatic) Lab Data 01/30/23 14:30 01/30/23 14:30 Labs: Lab Results 01/30/23 Range/Units 14:30 WBC 10.5 H (4.5-10
[2023-01-30] MEDS: LEVALBUTEROL NEB 1.25 MG/3 ML INHALATION (16:08)
[2023-01-30 16:43] VITALS: BP 141/82; PULSE 86; RESP 18; O2SAT 99
[2023-01-30 16:59] VITALS: BP 133/89; PULSE 77; RESP 18; O2SAT 100
== END 2023-01-30 17:00 | disposition home or self-care (01) ==
PROVIDERS: Emergency Provider Emergency Medicine
DX: L03.116 Cellulitis of left lower limb (principal); L03.115 Cellulitis of right lower limb; J45.909 Unspecified asthma, uncomplicated; I10 Essential (primary) hypertension; E66.3 Overweight; Z68.26 Body mass index [BMI] 26.0-26.9, adult; F17.210 Nicotine dependence, cigarettes, uncomplicated
CPT/HCPCS: 36415; 80053; 83880; 85025; 85610; 85730; 93970; 94640; 96365; 99284; J0696

== ENCOUNTER 2023-04-13 21:29 | Emergency (ER) | payer OTHER, SELFPAY ==
[2023-04-13] VITALS (12 sets, daily range): BP systolic 121–124; BP diastolic 83–85; PULSE 64–87; RESP 12–20; TEMP 36.6; O2SAT 94–100
--- NOTE | ~2023-04-13 | XR_ITS ---
Portable chest x-ray Comparison: 10/08/2022 Clinical History: COPD exacerbation Findings: Lungs are clear, without focal consolidation or pleural effusion. Cardiomediastinal silho uette is stable. Bones and soft tissues are unremarkable. Impression: Clear lungs. Reviewed, dictated and finalized at location . Impression: Clear lungs.
--- NOTE | 2023-04-13 21:32 | ED.SOB ---
HPI - SOB/Dyspnea General Chief Complaint: Asthma Stated Complaint: SOB Time Seen by Provider: 04/13/23 21:31 Source: patient and EMS Mode of arrival: ambulatory Limitations: no limitations History of Present Illness HPI Narrative: 32-year-old male, smoker with a history of fentanyl inhalation, marijuana use,COPD/asthma, anxiety, hypertension, depression with suicidal ideation in the past presents to the ER with -- worsening shortness of breath for the past 2 days. The patient quit taking his albuterol and Symbicort for the past 2 days. -- Cough with mucopurulent sputum -- chest tightness the patient was unable to get his inhalers which prompted him to call the EMS. EMS gave him bronchodilator treatment with improvement in symptoms. On arrival to the ER the patient is hemodynamically stable with an oxygen saturation of 94% on room air. MD elicited complaint: shortness of breath and cough Pertinent past history: COPD and asthma Onset (ago): day(s) ( Symptoms started 2 days ago.) Context: smoke/fume exposure ( Exposure to fentanyl, cigarettes and marijuana) and anxiety Timing: constant Severity: severe Exacerbating factors: nothing Relieving factors: nothing Known history of: COPD and asthma Associated symptoms: chest pain ( chest heaviness during his shortness of breath which has now resolved.) Related Data Home oxygen amount: none Allergies Allergy/AdvReac Type Severity Reaction Status Date / Time No Known Allergies Allergy Verified 04/13/23 21:44 Review of Systems Review of Systems: All systems reviewed & are unremarkable except as noted in HPI and below Constitutional: Constitutional: Reports as per HPI and Reports no additional constitutional complaints Eyes: Eyes: Reports as per HPI and Reports no additional eye complaints ENT: Reports system reviewed and no additional complaints, except as documented and Reports as per HPI Cardiovascular: Cardiovascular: Reports as per HPI, Reports no additional cardiovascular complaints and Reports chest pain ( Transient chest heaviness which has resolved) Respiratory: Respiratory: Reports as per HPI, Reports no additional respiratory complaints, Reports cough, Reports dyspnea and Reports wheezing Comments: with mucopurulent expectoration Gastrointestinal: Gastrointestinal: Reports as per HPI and Reports no additional gastrointestinal complaints Musculoskeletal: Musculoskeletal: Reports no additional musculoskeletal complaints Integumentary/Breasts: Skin/Breast: Reports system reviewed and no additional complaints, except as docu Neurologic: Reports system reviewed and no additional complaints, except as documented and Reports as per HPI Psychiatric: Psychiatric: Reports no additional psychiatric complaints and Reports as per HPI Endocrine: Endocrine: Reports no additional endocrine complaints and Reports as per HPI Hematologic/Lymphatic: Hematologic/Lymphatic: Reports no additional hematologic/lymphatic complaints and Reports as per HPI Allergic/Immunologic: Allergic/Immunologic: Reports no additional allergic/immunologic complaints and Reports as per HPI [facility] Past Medical History Medical History (Updated 04/13/23 @ 22:55 by Benoit Perez MD) Asthma Depression Hypertension Nicotine dependence, cigarettes, uncomplicated Overweight (BMI 25.0-29.9) Surgical History Surgical History No history of previous surgery Family History Family History Father No problems noted. Social History Social History Smoking packs per day: 1 Smoking cigarettes per day: 20.0 Years smoked: 20 Smoking pack-years: 20.00 Smoking status: Current every day smoker Tobacco type: cigarettes Substance use: current Substance use type: marijuana, painkillers, methamphetamine and oth
--- NOTE | 2023-04-13 21:43 | ECG_ITS ---
Measurements Intervals [place] Rate: 68 P: 80 GA: 161 QRS: 80 QRSD: 79 T: 73 QT: 363 QTc: 388 Interpretive Statements SINUS RHYTHM BASELINE ARTIFACT- II, III, AVF, V3 NORMAL ECG COMPARED TO ECG 10/08/2022 11:05:09 SINUS RHYTHM NOW PRESENT Electronically Signed On 04-14-2023 6:53:00 CDT by Harry Walsh D.O.
[2023-04-13] MEDS: IPRATROPIUM 0.5 MG/ALBUTEROL SULFATE 2.5 MG AMPUL.NEB 3 ML INHALATION (21:49)
[2023-04-13 22:00] LABS: Basophils Absolute Auto 0.07 K/mm3 (0.00-0.10); Basophils Percent Auto 0.9 % (0.0-1.0); Eosinophils Absolute Auto 0.48 K/mm3 (0.02-0.50); Eosinophils Percent Auto 6.4 % (1.0-6.0); Hematocrit 43.8 % (40.0-54.0); Hemoglobin 13.8 g/dL (14.0-18.0); Immature Granulocyte Absolute 0.01 K/mm3 (0.00-0.00); Immature Granulocyte Percent A 0.1 % (0.0-0.0); Lymphocytes Percent Auto 42.4 % (18.0-42.0); Mean Corpuscular HGB Conc 31.5 g/dL (32.0-36.0); Mean Corpuscular Hemoglobin 27.7 pg (27.0-31.0); Mean Corpuscular Volume 87.8 fL (78.0-102.0); Mean Platelet Volume 9.7 fl (8.7-11.0); Monocytes Absolute Auto 0.47 K/mm3 (0.10-0.90); Monocytes Percent Auto 6.2 % (2.0-11.0); Neutrophils Absolute Auto 3.3 K/mm3 (1.7-7.2); Platelet Count Result 207 K/mm3 (150-420); Red Blood Count 4.99 M/mm3 (4.70-6.10); Red Cell Distribution Width 13.7 % (11.6-14.4); White Blood Count 7.6 K/mm3 (4.8-10.8)
[2023-04-13] MEDS: methylPREDNISolone SOD SUCC 125 MG VIAL IV PUSH (22:04)
[2023-04-13 22:13] LABS: Partial Thromboplastin Time 26.1 SEC (23.90-30.70); Prothrombin Time 10.7 Seconds (9.50-12.10)
[2023-04-13 22:19] LABS: Lactic Acid Reflex 0.7 mmol/L (0.4-2.0)
[2023-04-13 22:24] LABS: Alanine Aminotransferase 28 U/L (16-63); Albumin Level 3.6 g/dL (3.4-5.0); Alkaline Phosphatase 66 U/L (46-116); Anion Gap 7 mmol/L (8-16); Aspartate Amino Transferase 15 U/L (15-37); Bilirubin,Total 0.8 mg/dL (0.00-1.00); Blood Urea Nitrogen 18 mg/dL (7-18); Calcium 8.7 mg/dL (8.5-10.1); Carbon Dioxide 32 mmol/L (21-32); Chloride 105 mmol/L (98-108); Estimated CRCL calculation 88 ml/min; Estimated Glomerular Filt Rate > 60; Glucose 95 mg/dL (70-99); Osmolality Calculated 299 mOsm/kg (285-295); Potassium 3.8 mmol/L (3.5-5.1); Sodium 144 mmol/L (136-145); Total Protein 6.7 g/dL (6.4-8.2); Troponin I 5.1 ng/L (0.00-60.4)
[2023-04-13 22:24] LABS: NT Pro B Type Natriuretic Pept 58 pg/mL (0-125)
[2023-04-13 22:37] LABS: Influenza A QL RT-PCR Negative (Negative); Influenza B QL RT-PCR Negative (Negative); SARS-CoV-2 RNA PCR Negative (Negative)
[2023-04-13 22:38] LABS: RSV RNA, RT-PCR Negative (Negative)
[2023-04-13] MEDS: AZITHROMYCIN 250 MG TABLET 500 MG PO (23:08)
== END 2023-04-13 23:33 | disposition home or self-care (01) ==
PROVIDERS: Emergency Provider Internal Medicine Critical Care Medicine; PCP Nurse Practitioner Family
DX: J45.901 Unspecified asthma with (acute) exacerbation (principal); J44.9 Chronic obstructive pulmonary disease, unspecified; I10 Essential (primary) hypertension; F17.210 Nicotine dependence, cigarettes, uncomplicated; Z20.822 Contact with and (suspected) exposure to COVID-19
CPT/HCPCS: 36415; 71045; 80053; 83605; 83880; 84484; 85025; 85610; 85730; 87637; 93005; 94640; 96374; 99284; A9270; J2930

== ENCOUNTER 2023-05-25 00:08 | Emergency (ER) | payer OTHER, SELFPAY ==
--- NOTE | 2023-05-25 00:48 | ED.CPR ---
HPI - CPR General Chief Complaint: Cardiac Arrest/CPR Stated Complaint: code Source: EMS Mode of arrival: EMS Limitations: clinical condition History of Present Illness HPI narrative: patient had done some drugs earlier in the evening. He then became unresponsive. Family notes that they had to go get girlfriend from [place] and then brought her back and then by that time CPR been started. They did not call EMS immediately. He had been down for approximately 40 minutes. EMS arrived and CPR was being continued they able to put in a IGEL airway and did BVM. He showed VFib on the monitor and was shocked 3 times. He is also given 5 epis. He had an automated CPR device placed on his chest and that was in place on arrival. I was at the bedside upon arrival at 12:08 a.m.. complaint: stopped breathing Onset (ago): minute(s) (70) Timing confirmed by: family member Place: home Bystander CPR performed: Yes Initial findings in the field: unresponsive ROSC in the field: No Associated injuries: No Known history of: drug abuse Treatments prior to arrival: BMV, other airway device, chest compressions, defibrillated shocks # (3) and epinephrine mgs # (5) Related Data Allergies Allergy/AdvReac Type Severity Reaction Status Date / Time No Known Allergies Allergy Verified 04/13/23 21:44 Review of Systems Review of Systems: ROS unobtainable: Yes unobtainable due to medical condition [facility] Past Medical History Medical History (Updated 05/25/23 @ 01:05 by Yaya Ortiz MD) Asthma Depression Hypertension Nicotine dependence, cigarettes, uncomplicated Overweight (BMI 25.0-29.9) Surgical History Surgical History No history of previous surgery Family History Family History Father No problems noted. 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 Gender identity (if verbalized by the patient): Male Exam Const: General: patient obtunded and average body habitus Orientation/consciousness: patient obtunded Other: Unresponsive HENMT: Head: normal to inspection Face/Nose/Sinus: Normal external nose present Face and sinus: normal facial exam Eyes: Pupils: Dilated pupils bilaterally and Fixed pupils bilaterally Neck: Neck: normal visual inspection Resp: Effort & Inspection: other ( no spontaneous respiration) Auscultation: breath sounds absent Cardio: Rate: other Other: no spontaneous heartbeat GI: GI Palp: Yes Soft to palpation Skin: General skin exam: mottling and pallor Neuro: General: patient obtunded Cranial nerves: No Normal gag reflex present Doll's-Eye Reflex: present Pupils: Dilated: bilateral and Fixed/non-reactive: bilateral Course Course Emergency Course: patient arrived on external CPR automated device. He had already received 5 epis and 3 shocks in the field. He had been down for approximately 70 minutes. On arrival patient had no spontaneous pulse or respirations. Unable to palpate a pulse. During CPR a good massage pulse palpated at the femoral arteries. I-gel was removed and patient was intubated on 1st pass using glide scope 7.5 ET tube. Patient had multiple pulse checks and multiple rhythm checks. He is found to have ventricular fibrillation and was shocked 6 times. At 1 rhythm check patient had normal sinus rhythm and a pulse for short time but then quickly reverted back to VFib and was shocked again. ROSC never achieved. Shilpa
--- NOTE | 2023-05-25 02:05 | PC.NURSE ---
0202-HARVEY Mars-JUNIOR PROGRAMMER ANALYST TONO. [id number] CONTACTED. BUSINESS CONTROL SPECIALIST SPOKE WITH MARC. REFERENCE NUMBER FOLLOWS; [id number]. [facility] TO CALL BACK BUSINESS CONTROL SPECIALIST WAS ADVISED NOT TO RELEASE BODY.
--- NOTE | 2023-05-25 02:07 | PC.NURSE ---
0040-WADE ARRIVES BACK AT BEDSIDE. PHYSICIAN SPEAKING WITH WADE REGARDING STATUS OF CARE. 0025-PT BROTHER-WADE, BROUGHT TO BEDSIDE RESUSCITATION EFFORTS ONGOING PHYSICIAN SPEAKING WITH HIM REGARDING STATUS OF CARE. WADE UNABLE TO REMAIN IN ROOM DUE TO EMOTIONS. WADE SHORTLY AFTER LOCATED IN ER PARKING LOT, ATTEMPTING TO CONTACT ADDITIONAL FAMILY, PER EMS STAFF.
--- NOTE | 2023-05-25 02:46 | PC.NURSE ---
0246-BODY IN CARE OF [facility] CORONER OF THIS TIME.
== END 2023-05-25 02:46 | disposition expired ==
PROVIDERS: Emergency Provider Emergency Medicine; PCP Nurse Practitioner Family
DX: I46.9 Cardiac arrest, cause unspecified (principal); T40.2X1A Poisoning by other opioids, accidental (unintentional), initial encounter; I10 Essential (primary) hypertension; J45.909 Unspecified asthma, uncomplicated; F17.210 Nicotine dependence, cigarettes, uncomplicated
CPT/HCPCS: 31500; 92950; 96374; 96375; 99291; J0171; J0282; J2310